=== PATIENT | male | born 1965 | race Asian ===

== ENCOUNTER 2020-11-13 13:27 | Emergency (ER) | payer MEDICARE, MEDICAID ==
[~2020-11-13] VITALS: Ht 170.2 cm; Wt 79.5 kg
[2020-11-13] MEDS ORDERED: ATOR10TA84 PO (13:30)
[2020-11-13] MEDS ORDERED: CARV3 PO (13:30)
[2020-11-13] MEDS ORDERED: ASPI-1111 PO (13:30)
[2020-11-13] MEDS ORDERED: SACU1TAB PO (13:30)
[2020-11-13] MEDS ORDERED: METF-960 PO (13:30)
[2020-11-13 13:33] VITALS: BP 148/89
== END 2020-11-13 14:40 | disposition home or self-care (01) ==
LOC: EMS 13:35
DX: Z20.828 Contact with and (suspected) exposure to other viral communicable diseases (principal); I10 Essential (primary) hypertension; E03.9 Hypothyroidism, unspecified; Z79.82 Long term (current) use of aspirin; Z79.84 Long term (current) use of oral hypoglycemic drugs; Z79.899 Other long term (current) drug therapy
CPT/HCPCS: 99283; U0003